=== PATIENT | female | born 1960 | race African-American/Black ===

== ENCOUNTER 2016-10-22 12:30 | Inpatient (IN) | payer MEDICARE ==
--- NOTE | ~2016-10-22 | MR61 ---
[facility] A Service of [facility] & [facility] RADIOLOGY TEXT RESULTS PATIENT: ASHLEY REYNA [facility] [id number] : 62 UNIT #: [id number] AGE: [address]: Gwyn Casillas MD SEX: F ORDER DR: [id number] [facility] [address] [place], [place] [address] [id number] I MR#: [id number] Acc #: [id number] NAME: ASHLEY REYNA : 1960 SEX: F STUDY DATE/TIME: 10/22/2016 19:38 [facility]IT[facility] ROOM: [facility] STUDY DESCRIPTION: MR Foot Wo Contrast Rt Attending Physician: Sammie Casillas M.D. Ordering Physician: Sammie Casillas M.D. Primary Care Physician: Rubi Mann M.D. MRI CENTER REPORT This report is preliminary unless electronic signature is present. EXAM Right foot MRI without contrast, 10/22/2016 HISTORY 56-year-old female with right foot pain for 2 weeks in the region of the fifth metatarsal. No specific injury. Order states draining wound along the lateral aspect of the fifth toe. History of prior second toe amputation 4 years ago. History of arthrodesis of the first metatarsophalangeal joint July 2016. COMPARISON Right foot x-rays 10/18/2016 and 10/22/2016. TECHNIQUE Multiplanar, multisequence high field MR imaging of the right midfoot and forefoot was performed without IV gadolinium. FINDINGS There is a small soft tissue ulceration along the dorsal lateral aspect of the fifth toe. This is associated with mild soft tissue thickening and minimal subcutaneous soft tissue edema/inflammation. No drainable fluid collections to suggest abscess. No evidence of joint effusion in the fifth toe. There is some minimal reactive marrow edema in the fifth middle and proximal phalanges without significant marrow replacement on the T1-weighted sequence. The findings are equivocal. Early osteomyelitis is not completely excluded although felt less likely at this time. There is a lobulated fluid collection noted in the subcutaneous soft tissues along the dorsal lateral aspect of the midfoot at the level of the base of the fifth metatarsal. This measures approximately 1.6 x 1.1 cm in cross section and 2.0 cm in length. This is just deep to the skin surface without evidence of communication. This is slightly hyperintense to STS. [facility] A Service of [facility] RADIOLOGY TEXT RESULTS PATIENT: ASHLEY REYNA [facility] : 62 UNIT #: [id number] AGE: [address]: Gwyn Casillas MD SEX: F ORDER DR: muscle on T1-weighted imaging and could represent a small subacute or chronic hematoma. Abscess is not completely excluded on this unenhanced examination. There is some mild generalized subcutaneous soft tissue edema throughout the dorsum of the midfoot and forefoot. Postsurgical changes from arthrodesis of the first metatarsophalangeal joint are noted. There also postsurgical changes from transmetatarsal amputation of the second ray. There is generalized fatty atrophy intrinsic musculature of the forefoot and midfoot consistent with chronic diabetic neuropathy. Flexor and extensor tendons appear grossly unremarkable. There are moderately advanced degenerative changes noted in the visualized midfoot. IMPRESSION 1. Small soft tissue wound along the dorsal lateral aspect of the fifth toe with minimal associated soft tissue cellulitis. No drainable fluid collection to suggest abscess. No evidence of a joint effusion of the fifth toe. There is some mild marrow edema in the fifth middle and proximal phalanges without significant marrow replacement. Osteomyelitis is not completely excluded although considered less likely at this time. 2. Lobulated fluid collection in the subcutaneous soft tissues along the dorsal lateral aspect of the midfoot at the level of the bases of the fourth and fifth metatarsals. This measures 1.6 x 1.0 x 2.0 cm. The fluid collection is slightly hyperintense to muscle on T1-weighted imaging and hyperintense on T2-weighted imaging. This is nonspecific and could represent a subacute or chronic hematoma. Abscess is not excluded in the appropriate clinical setting. No definite communication with the skin surface or deeper soft tissues of the midfoot. 3. Postsurgical changes from arthrodesis of the first metatarsophalangeal joint as well as transmetatarsal amputation of the second ray. 4. Moderately advanced midfoot arthrosis. Dictated by... Jonny Rosa M.D. THIS IS AN ELECTRONICALLY VERIFIED REPORT Jonny Rosa M.D. at 10/23/2016 4:59 PM MELVIN/ruy TD: 10/23/2016 15:39 JOB #: [id number] MRI CENTER REPORT Page 1 of 1 COPY
--- NOTE | ~2016-10-22 | A ---
[facility] Nutrition Therapy DATE: 10/24/16 Patient: ASHLEY REYNA Physician: ROBERT Address: [address] Room/Bed: [address] [place] [address], Zip: [place] [address] Admit Date: 10/22/16 Date of : 62 Height: 5 11 Weight: 208 94.5 NUTRITIONAL ASSESSMENT: REASON: CONSULT RE: DM EDUCATION PT IS 56 Y.O. FEMALE ADMITTED FOR (R) FOOT INFECTION HT: 5'11", WT: 207# (94 KG), BMI: 28.9 RD PROVIDED WRITTEN AND VERBAL CC DIET EDUCATION. RD PROVIDED LIST OF FOODS TO AVOID/LIMIT AND FOODS TO EAT MORE OFTEN. RD EMPHASIZED IMPORTANCE OF CONSUMING 3 BALANCED MEALS DAILY + LIMIT/AVOID SUGAR-SWEETENED BEVERAGES. PT REPORTS DRINKING GATORATE BUT HAS BEEN CUTTING BACK ON SODA INTAKE WELL CUTTING OUT FRIED/FAST FOOD AND INCLUDING MORE FRUITS AND VEGETABLES. PT WILLING TO DRINK WATER INSTEAD OF GATORADE. PT DEMONSTRATED UNDERSTANDING OF THE TOPIC. PT REPORTED NO DIET QUESTIONS AT THIS TIME. RD TO REMAIN AVAILABLE. RD NOTIFIED PT OF [facility] REFERRAL. RECOMMENDATIONS: 1. ENCOURAGE COMPLIANCE OF CURRENT DIET ORDER 2. RE-CONSULT RD IF FURTHER DIET EDUCATION REQUESTED/NEEDED RD WILL F/U PROTOCOL Respectfully, NATHALIA MALCOLM MS, RD, LD [facility] cc: client file
--- NOTE | ~2016-10-22 | OR ---
Unit #: [id number] #: [id number] Patient: ASHLEY REYNA [id number] [address] [place], [place] [address] [id number] MR#: [id number] NAME: ASHLEY REYNA ROOM: 473 Date of Procedure: 10/23/2016 Admission Date: 10/22/2016 Surgeon: Sammie Casillas M.D. : 1960 Attending Physician: Sammie Casillas M.D. Primary Care Physician: Rubi Mann M.D. OPERATIVE REPORT PREOPERATIVE DIAGNOSIS Right dorsal lateral foot subcutaneous abscess. POSTOPERATIVE DIAGNOSIS Right dorsal lateral foot subcutaneous abscess. PROCEDURE PERFORMED Right dorsal lateral midfoot subcutaneous abscess incision and drainage (). ASSISTANTS Ahsan and Sal. ANESTHESIA General. INDICATIONS FOR SURGERY This 56-year-old female with insulin-dependent diabetes and diabetic neuropathy developed an ulcer on the dorsal lateral aspect of her fifth toe 5 days ago. This is now worsen to develop into a subcutaneous abscess on the dorsal lateral forefoot. The patient was admitted yesterday and started on IV antibiotics. Initial cultures were taken from the draining sinus in her foot and these have so far showing gram-positive cocci in pairs. The patient has an MRI, which showed a subcutaneous abscess without evidence of osteomyelitis. The patient is therefore to undergo incision and drainage of the subcutaneous abscess. DESCRIPTION OF PROCEDURE The patient was taken to the operating room and placed in supine position. General anesthetic was induced. The right foot was identified as the correct operative location during the time-out procedure. The IV antibiotic protocol was not followed, because she was on preoperative Zosyn and vancomycin. The foot was prepped and draped in the usual sterile fashion. The leg was exsanguinated with an Esmarch bandage and this was wrapped around the ankle to act as a tourniquet. A 6 cm dorsal lateral longitudinal incision was made over the forefoot. The subcutaneous tissue was divided. A small amount of purulence was obtained and this was cultured for aerobic and anaerobic bacteria. The wound was then cleared of all necrotic appearing tissue. The wound was then irrigated with normal saline and then packed with Betadine-soaked 1-inch roll gauze. Xeroform gauze, dressing, sponges, cast padding, Maikel wrap, and postoperative shoe were then placed. The patient was transported to the Unit #: [id number] #: [id number] Patient: ASHLEY REYNA recovery room in stable condition. ESTIMATED BLOOD LOSS Minimal. COMPLICATIONS None. SPECIMENS Right dorsal lateral forefoot abscess culture and sensitivity. Dictated byMarissa Cain/ava TD: 10/23/2016 23:19 JOB #: [id number] OPERATIVE REPORT Page 1 of 1 X Gwyn Casillas MD X PROCEDURE OPERATIVE NOTE
--- NOTE | ~2016-10-22 | CO ---
Unit #: [id number] #: [id number] Patient: ASHLEY REYNA [id number] [address] [address] [id number] I MR#: [id number] NAME: ASHLEY REYNA ROOM: [facility] Age: 56 Sex: F Admission Date: 10/22/2016 : 1960 Attending Physician: Sammie Casillas M.D. Primary Care Physician: Rubi Mann M.D. CONSULTATION REPORT REASON FOR CONSULTATION Diabetic management. HISTORY OF PRESENT ILLNESS The patient is a 56-year-old female with history of diabetes mellitus for last 20 years, poorly controlled, and has been started on the insulin for the past few years on Lantus 65 units twice a day and Humalog 25 units twice a day and 2 units per meal. Admitted to orthopedic surgery today with abscess of the right foot with purulent drainage. The patient stated that the patient has had osteomyelitis of the toe, status post amputation, and history of IV antibiotics for at least 8 weeks a year ago. The patient is awaiting the MRI of the leg and I and D by orthopedist. The patient denies any fever or chills or nausea and vomiting. PAST MEDICAL HISTORY History of insulin dependent diabetes, diabetic neuropathy, history of MRSA, hypertension, hyperlipidemia, depression, cataract, and bowel obstruction. PAST SURGICAL HISTORY Foot surgery, appendectomy, bowel obstruction x2, C section, right second toe amputation, right foot debridement, and right first MTP joint fusion, and left hallux interphalangeal joint fusion. PAST SOCIAL HISTORY The patient denies any smoking, drinking alcohol, and illicit drug abuse. ALLERGIES No known drug allergies. HOME MEDICATIONS She is on: 1. Lipitor. 2. Fish oil. 3. Gabapentin. 4. Insulin. 5. Losartan. 6. Sertraline. REVIEW OF SYSTEMS Fourteen-point review of systems was performed and only pertinent positive points are as described above. Remaining are negative. FAMILY HISTORY Unit #: [id number] #: [id number] Patient: ASHLEY REYNA Reviewed and none. PHYSICAL EXAMINATION GENERAL: The patient is lying on the bed not in acute distress. VITALS: Temperature is 98.1, pulse 88, respirations 15, and blood pressure 144/68. HEAD: Atraumatic and normocephalic. ENT: Pupils are equal, round, and reactive to light and accommodation. Extraocular movements are intact. NECK: Supple neck. LUNGS: Clear to auscultation. HEART: Regular rate and rhythm. ABDOMEN: Soft. EXTREMITIES: Right foot status post dressing with no drainage. Pulses are present. Sensation is decreased. DIAGNOSTIC STUDIES LABORATORY: Data is pending and the last one is from July 14. Glucose 468, BUN 20, creatinine 1.4, sodium 136, potassium 4.3, chloride 102, bicarb 24, and calcium 8.7. WBC 9, hemoglobin of 9.5, hematocrit 30.5, and platelets 242. IMAGING: MRI is pending. ASSESSMENT 1. Right foot abscess. 2. Insulin dependent diabetes mellitus. PLAN Patient has been admitted to the orthopedic surgery service and awaiting the MRI and going to start her on empiric broad IV antibiotics with vanc. and Zosyn and continue the sliding scale low dose and will titrate. Her sugars are elevated. Check the hemoglobin A1c in the morning and continue with the DVT prophylaxis and further recommendations will follow. Dictated by... Marissa Lockhart TD: 10/23/2016 09:57 JOB #: [id number] CONSULTATION REPORT Page 1 of 1 X X CONSULTATION REPORT
--- NOTE | ~2016-10-22 | CR127 ---
[facility] A Service of [facility] & [facility] RADIOLOGY TEXT RESULTS PATIENT: ASHLEY REYNA LOCATION: [facility] 473-01 : [birth year] UNIT #: [id number] AGE: [address]: Gwyn Casillas MD SEX: F ORDER DR: [id number] [facility] [address] [place], [place] [address] [id number] I MR#: [id number] Acc #: [id number] NAME: ASHLEY REYNA : 1960 SEX: F STUDY DATE/TIME: 10/22/2016 21:17 UNIT: [facility] ROOM: [facility] STUDY DESCRIPTION: CR Foot Complete Min 3 View Rt Attending Physician: Sammie Casillas M.D. Ordering Physician: Sammie Casillas M.D. Primary Care Physician: Rubi Mann M.D. MEDICAL IMAGING REPORT This report is preliminary unless electronic signature is present EXAM Right foot HISTORY Dorsal foot abscess, foot infection for a week. Previous right great toe surgery. FINDINGS Three views of the right foot were obtained. They are compared to 10/18/2016. The second digit has been amputated at the distal metatarsal region. There is a metal plate and screw transfixing the first metatarsophalangeal joint and there is surgical change there with removal of some bone from the end of the phalanx and the end of the metatarsal bone. There is prominent bony tissue around the joint space, presumably from degenerative nature. There is degenerative change in the dorsum of the foot on the lateral view at the tarsometatarsal region. No foreign body is visible. IMPRESSION Postoperative and degenerative changes are noted in the first and second digits and also in the tarsometatarsal region. There is also some cystic change and narrowing at the first tarsometatarsal joint, which is not mentioned above. There has been no significant change from the previous study. Dictated by... Tha Mari M.D. THIS IS AN ELECTRONICALLY VERIFIED REPORT Tha Mari M.D. at 10/23/2016 5:54 AM [facility]/psc [facility] A Service of [facility] & [facility] RADIOLOGY TEXT RESULTS PATIENT: ASHLEY REYNA LOCATION: [facility] 473-01 : [birth year] UNIT #: [id number] AGE: [address]: Gwyn Casillas MD SEX: F ORDER DR: TD: 10/23/2016 02:40 JOB #: [id number] MEDICAL IMAGING REPORT Page 1 of 1 COPY
--- NOTE | ~2016-10-22 | DS ---
Unit #: [id number] #: [id number] Patient: ASHLEY REYNA [id number] [address] [place], [place] [address] [id number] I MR#: [id number] NAME: ASHLEY REYNA ROOM: [facility] Age: 56 Sex: F Admission Date: 10/22/2016 : 1960 Discharge Date: 10/25/2016 Attending Physician: Sammie Casillas M.D. Primary Care Physician: Rubi Mann M.D. DISCHARGE SUMMARY CHIEF COMPLAINT Right foot infection. HISTORY OF PRESENT ILLNESS This is a pleasant 56-year-old female with uncontrolled diabetes, who presented to the office with an approximately 10 day history of an ulceration of the right fifth toe which developed into an abscess along the dorsal aspect of the foot with draining purulence. She states she was feeling poorly in the office with some nausea and did not have good blood sugar control and also was having some feeling of chills and fever. She was admitted for treatment of this right foot infection. HOSPITAL COURSE The patient was admitted from the office on for IV antibiotics and MRI evaluation of her right foot infection. She was feeling ill and constitutional symptoms when she was seen in the office. She was subsequently found to have a dorsal abscess on the lateral aspect of the foot and was subsequently taken to the operating room for incision and drainage of this abscess. There was no significant undermining or fluid collection appreciated. There was a substantial amount of fibrous and necrotic tissue consistent with chronic abscess formation and infection found. The wound was packed and left open. She was transferred back to the floor and Infectious Disease was consulted for management because her OR cultures were positive for MRSA. She was hemodynamically stable. Her pain was controlled with oral pain medications. Infectious Disease recommendations are for IV vancomycin through a PICC line for two weeks. So, a PICC line will be placed and she will be discharged home with daily dressing change instructions and will be followed up in seven days in Dr. Casillas's office. FINAL DIAGNOSIS Right foot infection now status post right foot incision and drainage. PROCEDURE PERFORMED Right foot incision and drainage on 10/23/2016. DISPOSITION Home. RECOMMENDATIONS 1. The patient was slightly apprehensive about her ability to change her own dressing but, after observing her dressing change today, she is very comfortable with her ability to perform these dressing changes and so she is happy to go home to sleep in her own bed. She will Unit #: [id number] #: [id number] Patient: ASHLEY REYNA also be visited by a home health for her vancomycin infusions on a daily basis. 2. Weightbearing as tolerated on the right foot. She is able to get around okay using a walker and feels comfortable doing so at home. 3. Daily dressing changes with Dakin solution packing to the right foot wound. 4. IV vancomycin daily per Infectious Disease recommendations for the next two weeks. 5. Followup in Dr. Lionel Casillas's office in seven days for evaluation. I discussed with the patient that if she should experience any severe pain or significantly worsening constitutional symptoms, she should call the office or go to the emergency room for evaluation. Dictated by... Bennie Huang M.D. for Marissa Alonzo/laurie TD: 10/26/2016 08:31 JOB #: [id number] DISCHARGE SUMMARY Page 1 of 1 X X DISCHARGE SUMMARY
--- NOTE | ~2016-10-22 | HP ---
Unit #: [id number] #: [id number] Patient: ASHLEY REYNA [id number] [address] [address] [id number] P MR#: [id number] NAME: ASHLEY REYNA ROOM: Age: 56 Sex: F Admission Date: : 1960 Attending Physician: Sammie Casillas M.D. Primary Care Physician: No Primary Care Physician HISTORY AND PHYSICAL CHIEF COMPLAINT Right foot infection. HISTORY OF PRESENT ILLNESS This 56-year-old, poorly controlled diabetic presents with a 10-day history of ulceration over the right lateral aspect of her fifth toe, which has now developed into a dorsal abscess of the foot with draining purulence. The patient states that she is nauseated, has poor blood sugar control and has fevers and chills. She is, therefore, admitted for IV antibiotics as well as MRI of the right foot. She recently underwent right first MTP joint fusion for severe hallux valgus deformity on 07/13/2016, 3.5 months ago. PAST MEDICAL HISTORY 1. Insulin dependent diabetes. 2. Diabetic neuropathy. 3. History of MRSA. 4. Hypertension. 5. Hyperlipidemia. 6. Depression. 7. Cataracts. 8. Bowel obstruction. PAST SURGICAL HISTORY 1. Foot surgery. 2. Appendectomy. 3. Bowel obstruction times two. 4. . 5. Right second toe amputation. 6. Right foot debridement. 7. Right first MTP joint fusion. 8. Left hallux interphalangeal joint fusion. SOCIAL HISTORY The patient is a nondrinker, nonsmoker. ALLERGIES No known drug allergies. HOME MEDICATIONS 1. Atorvastatin. 2. Fish oil. 3. Gabapentin. 4. Insulin. Unit #: [id number] #: [id number] Patient: ASHLEY REYNA 5. Losartan. 6. Sertraline. PHYSICAL EXAMINATION GENERAL: This is a well-developed, well-nourished, middle-aged female in no acute distress. HEENT: Pharynx is clear. NECK: Supple without masses. LUNGS: Clear. HEART: Regular sinus rhythm without murmurs. ABDOMEN: Soft and nontender. EXTREMITIES: Examination of the right foot shows a previously performed medial incision over the hallux which is well healed. There is mild swelling of the hallux. There is mild residual hallux valgus. The second toe is absent. Pulses are present. The patient has a pointy abscess of the dorsolateral foot which is draining purulent fluid. Sensation is decreased. DIAGNOSTIC STUDIES IMAGING: X-rays of the right foot taken four days ago show no evidence of osteomyelitis of the fifth toe and presence of a developing nonunion of the first MTP joint arthrodesis site. ASSESSMENT Right dorsolateral midfoot abscess. PLAN 1. MRI. 2. Admit for IV vancomycin and Zosyn. 3. N.p.o. after midnight for possible foot surgery tomorrow. 4. Infectious disease consult. 5. Internal medicine consult. Dictated by Sammie Casillas M.D. RTH/gz TD: 10/22/2016 12:28 JOB #: [id number] HISTORY AND PHYSICAL Page 1 of 1 X Gwyn Casillas MD X HISTORY AND PHYSICAL
--- NOTE | ~2016-10-22 | CO ---
Unit #: [id number] #: [id number] Patient: ASHLEY REYNA [id number] [address] [address] [id number] MR#: [id number] NAME: ASHLEY REYNA ROOM: [facility] Age: 56 Sex: F Admission Date: 10/22/2016 : 1960 Attending Physician: Sammie Casillas M.D. Primary Care Physician: Rubi Mann M.D. Consultation Date: 10/23/2016 CONSULTATION REPORT REASON FOR CONSULTATION Antibiotic management. HISTORY OF PRESENT ILLNESS The patient is a 56-year-old female with a history of diabetes that is not well controlled, with greater than a week history of wound to her right fifth toe. The patient reports that it was a small blister and now it is draining. The patient reports she has neuropathy and does not have a lot of feeling in her foot. The patient did report fever at home times one, up to 101 degrees Fahrenheit, with associated chills. She was admitted and started on vancomycin and Zosyn. She is currently awaiting an incision and drainage of her foot abscess this day. The patient also had an MRI done and results are currently pending. The patient is status post right first MTP joint fusion in 07/2016. PAST MEDICAL HISTORY 1. Diabetes with neuropathy. 2. History of MRSA. 3. Hypertension. 4. Hyperlipidemia. 5. Depression. 6. Cataracts. 7. Bowel obstruction. PAST SURGICAL HISTORY 1. Foot surgery approximately three months ago as stated in history of present illness. 2. Appendectomy. 3. Bowel obstruction times two. 4. . 5. Right second toe amputation. 6. Right foot debridement with MTP joint fusion, left helix intraphalangeal joint fusion. SOCIAL HISTORY No alcohol or tobacco abuse at this time. ALLERGIES No known drug allergies. CURRENT MEDICATIONS 1. Vancomycin. 2. Zosyn. Unit #: [id number] #: [id number] Patient: ASHLEY REYNA For further medications please refer to the patient's MAR. REVIEW OF SYSTEMS Negative except as previously mentioned above. She denies any headaches, chest pain, shortness of breath, nausea, vomiting, diarrhea or any other nonhealing wounds. PHYSICAL EXAMINATION GENERAL: This is a no apparent distress female who is currently resting in bed. VITALS: Temperature 98.2, pulse 71, blood pressure 147/67, respiratory rate 17. HEENT: Her pupils are equal. NECK: Supple. LUNGS: Clear to auscultation bilaterally with no wheezes or rhonchi noted. HEART: S1 and S2. Regular rate and rhythm. ABDOMEN: Positive bowel sounds. Soft and nontender. EXTREMITIES: No clubbing, cyanosis or edema. She has a right foot wound with a pinpoint area of draining fluid near her right fifth toe. There is an ulcerated area on her right fifth toe as well. There is some erythema and cellulitis noted. DIAGNOSTIC STUDIES IMAGING: MRI is currently pending. LABORATORY: BUN 19, creatinine 1.3, sodium 135, potassium 3.2, chloride 101, CO2 23, CRP 1.4. White blood cell count 10.1, hemoglobin 8.6, hematocrit 27.0, platelets 313. Sedimentation rate is greater than 120. Wound swab shows gram positive cocci in pairs. ASSESSMENT/PLAN This is a 56-year-old diabetic female now with right fifth toe diabetic foot ulcer and abscess. The patient is currently awaiting incision and drainage. Will follow operating room cultures as well as MRI findings for osteomyelitis. Agree with vancomycin and Zosyn at this time and direct antibiotic therapy based on culture results. The patient does not appear septic or toxic. Thank you for allowing us to participate in the care of this patient. Further recommendations to follow pending the patient's clinical course. Dictated by... Buffy Torres/janina TD: 10/23/2016 09:49 JOB #: [id number] Unit #: [id number] #: [id number] Patient: ASHLEY REYNA CONSULTATION REPORT Page 1 of 1 X X CONSULTATION REPORT
--- NOTE | ~2016-10-22 | CO ---
Unit #: [id number] #: [id number] Patient: ASHLEY REYNA [id number] [address] [place], [place] [address] [id number] I MR#: [id number] NAME: ASHLEY REYNA ROOM: [facility] Age: 56 Sex: F Admission Date: 10/22/2016 : 1960 Attending Physician: Sammie Casillas M.D. Primary Care Physician: Rubi Mann M.D. Consultation Date: 10/23/2016 CONSULTATION REPORT REASON FOR CONSULTATION Uncontrolled type 2 diabetes mellitus. HISTORY OF PRESENT ILLNESS This is a 56-year-old black female with history of type 2 diabetes mellitus for several years, insulin dependent, poor compliance with the diet, last A1c as per patient was above 14%, who presented with history of the ulceration over the right fifth toe, which gradually got worse and developed into the abscess of the right foot with draining purulent discharge. She was seen by Dr. Casillas. She underwent the I and D. She does report to have the fever and chills. MRI showed no osteomyelitis. She has been admitted for IV antibiotics. I have been asked to see the patient for further management. Note, the patient is very poor compliant with the diet. She does drink regular sodas and juices. Her blood sugars on all the time above 300 to 400 mg/dL. PAST MEDICAL HISTORY Type 2 diabetes mellitus, poorly controlled; diabetic neuropathy; peripheral neuropathy; history of MRSA; hypertension; hyperlipidemia; depression. PAST SURGICAL HISTORY Right foot surgery in the past, appendectomy, , right second toe amputation. SOCIAL HISTORY Nondrinker and nonsmoker. ALLERGIES None known. MEDICATIONS Levemir 65 units b.i.d. and NovoLog 25 units b.i.d., atorvastatin, gabapentin, losartan, and sertraline. REVIEW OF SYSTEMS 12-point review of system was completed. Please see HPI. The patient does report to have polyuria and polydipsia. PHYSICAL EXAMINATION GENERAL: She is well developed, well nourished. VITAL SIGNS: Temperature 98.5, pulse 75, respirations 18, blood pressure 146/69. Unit #: [id number] #: [id number] Patient: ASHLEY REYNA HEENT: EOMI. Pupils equally reactive to light. NECK: Supple. No thyromegaly noted. CHEST: Good air entry. CVS: Regular rhythm. No murmurs. ABDOMEN: Soft and nontender. Bowel sounds positive. EXTREMITIES: Right foot dressing. NEUROLOGIC: Nonfocal. DIAGNOSTIC STUDIES LABORATORY RESULTS: A1c is 14.7. Creatinine is 1.3. Glucose on admission was 231. ASSESSMENT 1. Type 2 diabetes mellitus, poorly controlled with insulin dependence. 2. Right foot abscess, history of past incision and drainage. 3. History of peripheral neuropathy. 4. History of Methicillin-resistant Staphylococcus aureus. PLAN We will get the nutrition consult. Change Levemir to 30 units subcu b.i.d., NovoLog 10 units each meal. Cover with supplemental sliding scale. Get nutrition consult. Dictated by... Marissa White/ava TD: 10/24/2016 03:58 JOB #: [id number] CONSULTATION REPORT Page 1 of 1 X Mark Larson MD X CONSULTATION REPORT
[2016-10-22 16:29] LABS: BASOPHIL% 0.5 % (0-2.5); EOSINOPHIL# 0.2 X10e3 (0-0.7); EOSINOPHIL% 1.9 % (0.0-7.0); HEMATOCRIT 26.9 % (35.0-45.0); HEMOGLOBIN 8.6 gm/dL (12.0-16.0); LYMPHOCYTE% 28.9 % (17.0-45.0); MEAN CELL VOLUME 78.4 FL (83-96); MEAN CORPUSCULAR HEMOGLOBIN 25.1 PG (28-34); MEAN PLATELET VOLUME 9.3 FL (6.5-11.5); MONOCYTE# 0.6 X10e3 (0-1.0); MONOCYTE% 5.4 % (3.0-12.0); NEUTROPHIL# 6.6 X10e3 (1.5-7.1); NEUTROPHIL% 63.3 % (40-75); PLATELET COUNT 317 X10e3 (140-420); RED BLOOD COUNT 3.44 X10e (3.90-5.30); RED CELL DISTRIBUTION WIDTH 16.2 % (11.0-15.5); WHITE BLOOD COUNT 10.4 X10e3 (4.0-10.5)
[2016-10-22 16:37] LABS: DIFF IND NO
[2016-10-22] MEDS ORDERED: GABAPENTIN300 M2 PO (16:42)
[2016-10-22] MEDS ORDERED: LOSARTAN POTAS100 MG PO (16:44)
[2016-10-22] MEDS ORDERED: ZOLOFT50 MG PO (16:45)
[2016-10-22 16:55] LABS: PROTHROMBIN TIME (PATIENT) 10.3 SECONDS (9.6-11.5)
[2016-10-22 16:56] LABS: BUN/CREATININE RATIO 12.14; CALCIUM SERUM 8.8 mg/dL (8.4-10.2); CREATININE SERUM 1.4 mg/dL (0.6-1.4); GLOM FILT RATE Estimated 48.9 mL/min (>60); POTASSIUM 3.6 mmol/L (3.5-5.1)
[2016-10-23 03:49] LABS: BASOPHIL# 0.1 X10e3 (0-0.3); BASOPHIL% 0.7 % (0-2.5); EOSINOPHIL# 0.2 X10e3 (0-0.7); EOSINOPHIL% 2.3 % (0.0-7.0); HEMOGLOBIN 8.6 gm/dL (12.0-16.0); LYMPHOCYTE# 3.4 X10e3 (1.0-3.5); LYMPHOCYTE% 33.4 % (17.0-45.0); MEAN CELL VOLUME 79.1 FL (83-96); MEAN CORPUSCULAR HEMOGLOBIN 25.3 PG (28-34); MEAN PLATELET VOLUME 9.3 FL (6.5-11.5); MONOCYTE# 0.6 X10e3 (0-1.0); MONOCYTE% 5.6 % (3.0-12.0); NEUTROPHIL# 5.8 X10e3 (1.5-7.1); PLATELET COUNT 313 X10e3 (140-420); RED BLOOD COUNT 3.41 X10e (3.90-5.30); RED CELL DISTRIBUTION WIDTH 16.2 % (11.0-15.5); WHITE BLOOD COUNT 10.1 X10e3 (4.0-10.5)
[2016-10-23 04:00] LABS: DIFF IND NO
[2016-10-23 04:09] LABS: BUN/CREATININE RATIO 14.61; CALCIUM SERUM 8.6 mg/dL (8.4-10.2); CREATININE SERUM 1.3 mg/dL (0.6-1.4); GLOM FILT RATE Estimated 53.5 mL/min (>60); POTASSIUM 3.2 mmol/L (3.5-5.1)
[2016-10-23 14:39] LABS: URINE APPEARANCE CLEAR; URINE BILIRUBIN NEG (NEG); URINE BLOOD NEG (NEG); URINE COLOR YELLOW; URINE GLUCOSE 500 MG/DL (NEG); URINE KETONE NEG (NEG); URINE LEUKOCYTE ESTERASE NEG (NEG); URINE NITRATE NEG (NEG); URINE PH 6.5 (5-8); URINE PROTEIN 2+ (NEG); URINE SPECIFIC GRAVITY 1.018 (1.003-1.035); URINE UROBILINOGEN 0.2 MG/DL (NEG)
[2016-10-23 14:40] LABS: CULTURE INDICATED? YES; URBCS1 AUWI 0-2 /[HPF] (0-2); URINE BACTERIA AUWI 1+ (NEGATIVE); URINE SQUAMOUS EPITHELIAL CELL FEW /[HPF]
[2016-10-23 16:16] LABS: MAGNESIUM 1.7 mg/dL (1.6-3.0); POTASSIUM 3.5 mmol/L (3.5-5.1)
[2016-10-24 03:10] LABS: BASOPHIL# 0.1 X10e3 (0-0.3); BASOPHIL% 0.8 % (0-2.5); DIFF IND NO; EOSINOPHIL# 0.3 X10e3 (0-0.7); EOSINOPHIL% 2.8 % (0.0-7.0); HEMATOCRIT 25.8 % (35.0-45.0); HEMOGLOBIN 8.2 gm/dL (12.0-16.0); LYMPHOCYTE# 2.9 X10e3 (1.0-3.5); LYMPHOCYTE% 31.8 % (17.0-45.0); MEAN CELL VOLUME 78.4 FL (83-96); MEAN CORPUSCULAR HEMOGLOBIN 25.1 PG (28-34); MONOCYTE# 0.4 X10e3 (0-1.0); MONOCYTE% 4.9 % (3.0-12.0); NEUTROPHIL# 5.5 X10e3 (1.5-7.1); NEUTROPHIL% 59.7 % (40-75); PLATELET COUNT 318 X10e3 (140-420); RED BLOOD COUNT 3.28 X10e (3.90-5.30); RED CELL DISTRIBUTION WIDTH 16.5 % (11.0-15.5); WHITE BLOOD COUNT 9.2 X10e3 (4.0-10.5)
[2016-10-24 03:35] LABS: BUN/CREATININE RATIO 16.36; CALCIUM SERUM 8.3 mg/dL (8.4-10.2); CREATININE SERUM 1.1 mg/dL (0.6-1.4); GLOM FILT RATE Estimated 65.5 mL/min (>60); MAGNESIUM 1.6 mg/dL (1.6-3.0); POTASSIUM 3.8 mmol/L (3.5-5.1)
[2016-10-24 03:48] LABS: IRON SERUM 31 ug/dL (28-170); TOTAL IRON BINDING CAPACITY 282 ug/dL (269-535); TRANSFERRIN 202 mg/dL (192-382); TRANSFERRIN SATURATION 11 % (20-50)
[2016-10-25 03:11] LABS: HEMATOCRIT 25.9 % (35.0-45.0); HEMOGLOBIN 8.3 gm/dL (12.0-16.0); MEAN CELL VOLUME 78.8 FL (83-96); MEAN CORPUSCULAR HEMOGLOBIN 25.3 PG (28-34); MEAN CORPUSCULAR HGB CONC 32.1 g/dL (30-36); MEAN PLATELET VOLUME 9.3 FL (6.5-11.5); RED BLOOD COUNT 3.29 X10e (3.90-5.30); RED CELL DISTRIBUTION WIDTH 16.6 % (11.0-15.5); WHITE BLOOD COUNT 9.9 X10e3 (4.0-10.5)
[2016-10-25 03:48] LABS: BUN/CREATININE RATIO 18.18; CALCIUM SERUM 8.3 mg/dL (8.4-10.2); CREATININE SERUM 1.1 mg/dL (0.6-1.4); GLOM FILT RATE Estimated 65.5 mL/min (>60)
[2016-10-25] MEDS ORDERED: DOCUSATE SODIU100 MG PO (14:13)
[2016-10-25] MEDS ORDERED: LEVEMIR100 UNITS/ (14:14)
[2016-10-25] MEDS ORDERED: NOVOLOG100 UNITS/ SUBQ ×2 (14:15→14:18)
[2016-10-25] MEDS ORDERED: B-121000 MC1 PO (14:19)
[2016-10-25] MEDS ORDERED: NORVASC10 MG PO (14:20)
[2016-10-25] MEDS ORDERED: OXYCODONE-ACET1 EACH PO (14:21)
[2016-10-25] MEDS ORDERED: VANCOCIN HCL2 GM IV (14:26)
== END 2016-10-25 19:50 | disposition home health service (06) | DRG 581 ==
LOC: C4C 12:30
PROVIDERS: Internal Medicine; Nurse Practitioner; Orthopaedic Surgery
PROC: 05H533Z Insertion of Infusion Device into Right Subclavian Vein, Percutaneous Approach (ICD-10-PCS; 2016-10-22)
PROC: B546ZZA Ultrasonography of Right Subclavian Vein, Guidance (ICD-10-PCS; 2016-10-22)
PROC: 0J9Q0ZZ Drainage of Right Foot Subcutaneous Tissue and Fascia, Open Approach (ICD-10-PCS; principal; 2016-10-23 19:00)
PROC: 05H633Z Insertion of Infusion Device into Left Subclavian Vein, Percutaneous Approach (ICD-10-PCS; 2016-10-25)
PROC: B547ZZA Ultrasonography of Left Subclavian Vein, Guidance (ICD-10-PCS; 2016-10-25)
DX: L02.611 Cutaneous abscess of right foot (principal); E11.22 Type 2 diabetes mellitus with diabetic chronic kidney disease; E11.42 Type 2 diabetes mellitus with diabetic polyneuropathy; Z86.14 Personal history of Methicillin resistant Staphylococcus aureus infection; E78.5 Hyperlipidemia, unspecified; F32.9 Major depressive disorder, single episode, unspecified; H26.9 Unspecified cataract; Z89.421 Acquired absence of other right toe(s); Z79.4 Long term (current) use of insulin; I12.9 Hypertensive chronic kidney disease with stage 1 through stage 4 chronic kidney disease, or unspecified chronic kidney disease; E11.65 Type 2 diabetes mellitus with hyperglycemia; N18.3 Chronic kidney disease, stage 3 (moderate); E87.6 Hypokalemia; D50.9 Iron deficiency anemia, unspecified; E83.42 Hypomagnesemia; E53.8 Deficiency of other specified B group vitamins
CPT/HCPCS: 73630; 73718; 80048; 81003; 82607; 82947; 83036; 83540; 83550; 83735; 84132; 85025; 85027; 85610; 85652; 86140; 87070; 87075; 87077; 87086; 87088; 87186; 87205; 94760; 97116; 97162; 97530; G8978-GP; G8979-GP; J1815; J2250; J2405; J2543; J2550; J3010; J3370; J3420; J3475